=== PATIENT | female | born 1990 | race Caucasian/White ===

== ENCOUNTER 2018-03-10 02:35 | Emergency (ER) | payer OTHER ==
[~2018-03-10] VITALS: Ht 172.7 cm; Wt 137.8 kg
[~2018-03-10 02:35] MED LIST: AMOXICILLIN875 MG PO; CIPRO500 MG PO; FLEXERIL10 MG PO; HYDROCODON-ACE1 EAC7 PO; MOTRIN600 MG PO; NOHOMEMEDS; NORCO 5/3251 TABLET PO; PREDNISONE10 MG PO; ROBITUSSIN AC,T10 ML PO; ULTRAM50 MG PO; ZOFRAN4 MG PO
[2018-03-10] MEDS ORDERED: AUGMENTIN875 MG PO (03:40)
[2018-03-10 03:58] VITALS: BP 148/91
== END 2018-03-10 03:59 | disposition home or self-care (01) ==
LOC: EME 02:35
PROC: 3E0234Z Introduction of Serum, Toxoid and Vaccine into Muscle, Percutaneous Approach (ICD-10-PCS; principal; 2018-03-10)
DX: S61.250A Open bite of right index finger without damage to nail, initial encounter (principal); Y04.1XXA Assault by human bite, initial encounter; Y99.0 Civilian activity done for income or pay; Z23 Encounter for immunization
CPT/HCPCS: 99281; 99283